=== PATIENT | female | born 1990 | race Asian ===

== ENCOUNTER 2018-03-13 16:09 | Emergency (ER) | payer SELFPAY | END 2018-03-13 18:06 | disposition left against medical advice (07) | LOC: ER 16:09 | DX: M54.2 Cervicalgia (principal); Z53.21 Procedure and treatment not carried out due to patient leaving prior to being seen by health care provider ==

== ENCOUNTER 2019-07-04 20:52 | Emergency (ER) | payer BC ==
[~2019-07-04] VITALS: Ht 162.6 cm; Wt 90.0 kg
[2019-07-04 20:55] VITALS: BP 127/66
--- NOTE | 2019-07-04 21:58 | PHYS DOC ---
Past Medical History Past Medical History: No Pertinent History (BLANCA PAREKH APRN) Past Surgical History: No Surgical History (BLANCA PAREKH APRN) Alcohol Use: None (BLANCA PAREKH APRN) Attending Signature I have participated in the care of this patient and I have reviewed and agree with all pertinent clinical information above including history, exam, and recommendations. (ALMA KOHLI MD) Adult General Chief Complaint Chief Complaint: FLU SYMPTOM HPI HPI Patient is a 29-year-old female, accompanied by her family member, who presents to emergency department with complaints of nasal congestion, body aches, fatigue, dry cough, and a headache for the last 3-4 days. She denies any fever, nausea, vomiting, diarrhea, abdominal pain, sore throat, or ear pain. Patient denies any vision changes or dizziness with her headache. She denies any known exposure to influenza. Patient states that her symptoms have been increased and she cannot sleep because she does not feel well. Patient states that she has been having a hard time sleeping for weeks. She states that something will happen during the day and then she is unable to stop thinking about it and loses sleep over it. She denies any suicidal or homicidal ideations. Patient denies any history of depression. She currently rates her pain 7 out of 10 on the pain is exacerbated is a constant headache. She denies any alleviating factors. All other ROS is neg unless otherwise noted in HPI. (BLANCA PAREKH APRN) Review of Systems Review of Systems See Above (BLANCA PAREKH APRN) Allergies Allergies Allergies Coded Allergies Type Severity Reaction Last Updated Verified No Known Drug Allergies 07/04/19 No (ALMA KOHLI MD) Physical Exam Physical Exam See Above Constitutional: Well developed, well nourished, no acute distress, ill appearance, obese HENT: Normocephalic, atraumatic, bilateral external ears normal, bilateral TMs normal, posterior pharynx normal oropharynx moist, nose congested with erythema and edema of the nasal turbinates bilaterally Eyes: PERRLA, conjunctiva injected bilaterally, no discharge. [] Neck: Normal range of motion, no stridor. [] Cardiovascular:Heart rate regular rhythm, no murmur [] Lungs & Thorax: Bilateral breath sounds clear to auscultation, Respirations even and unlabored, no retractions, no respiratory distress Skin: Warm, dry, no erythema, no rash. [] Back: No tenderness Extremities: No cyanosis, ROM intact Neurologic: Alert and oriented X 3, no focal deficits noted. [] Psychologic: Affect normal, judgement normal, mood normal. (BLANCA PAREKH APRN) Current Patient Data Vital Signs Vital Signs Date Time Temp Pulse Resp B/P (MAP) Pulse Ox O2 Delivery O2 Flow Rate FiO2 07/04/19 20:55 97.8 82 18 127/66 (86) 100 Room Air 97.8 (ALMA KOHLI MD) EKG EKG [] (BLANCA PAREKH APRN) Radiology/Procedures Radiology/Procedures [] (BLANCA PAREKH APRN) Course & Med Decision Making Course & Med Decision Making Pertinent Labs and Imaging studies reviewed. (See chart for details) Advised patient that the ER is not a place to prescribe medications for chronic problems with anxiety and sleep disturbances. Recommended that the patient follow up with her primary care doctor for further evaluation of these symptoms. Encouraged patient to take NyQuil at this time for relief of flu symptoms and sleep aid. Encourage Tylenol and ibuprofen during the day as needed for pain/fever. Recommend use of [id number] cough suppressants and flu remedies. Return to the ER if symptoms worsen. Patient verbalized an understanding of home care, medications, follow-up, and return to ED instructions and was in agreement with the plan of care. [] (BLANCA PAREKH APRN) Dragon Disclaimer Dragon Disclaimer This electronic medical record was generated, in whole or in part, using a voice recognition dictation system. (BLANCA PAREKH APRN) Departure Departure Impression: Primary Impression: Flu-like symptoms Disposition: HOME, SELF-CARE Condition: STABLE Referrals: NO PCP (PCP) Patient Instructions: Influenza, Adult, [id number] Additional Instructions: Recommend NyQuil for relief of flu symptoms and help with sleep.. Alternate Tylenol and ibuprofen as needed for fever. Increase clear fluids and rest. Diet as tolerated. Recommend use of [id number] flu medications as needed for relief of your symptoms. Follow up with your primary care doctor for further evaluations of your anxiety symptoms and problems with sleep Return to the ER if symptoms worsen. BLANCA PAREKH APRN Jul 04, 2019 21:58 ALMA KOHLI MD Jul 05, 2019 01:33
== END 2019-07-04 22:00 | disposition home or self-care (01) ==
LOC: ER 20:52
DX: R09.81 Nasal congestion (principal); R05 Cough; R51 Headache; L53.9 Erythematous condition, unspecified; R53.83 Other fatigue
CPT/HCPCS: 99281